=== PATIENT | male | born 1985 | race Caucasian/White ===

== ENCOUNTER 2017-08-23 17:11 | Emergency (ER) | payer OTHER ==
[~2017-08-23] VITALS: Ht 188 cm; Wt 75.7 kg
--- NOTE | 2017-08-23 18:41 | Diagnostic Imaging Report ---
INDICATION: Fell, landed on left arm, pain to the wrist area on the medial side FINDINGS: Three views of the left wrist demonstrate normal ossification. No fracture or dislocation is present. IMPRESSION: Normal left wrist. Dictated by: Dictated on workstation # [id number]
--- NOTE | 2017-08-23 18:42 | Diagnostic Imaging Report ---
INDICATION: Fell, landed on left arm, pain to the distal arm. FINDINGS: Two views of the left forearm demonstrate normal ossification. No fracture or dislocation is present. IMPRESSION: Normal left forearm. Dictated by: Dictated on workstation # [id number]
--- NOTE | 2017-08-23 19:42 | Diagnostic Imaging Report ---
INDICATION: Patient fell on left hand complaining of hand pain FINDINGS: 3 views of the left hand demonstrate normal ossification. No fracture or subluxation is present. There are no foreign bodies. IMPRESSION: Normal left hand. Dictated by: Dictated on workstation # [id number]
--- NOTE | 2017-08-23 19:46 | Diagnostic Imaging Report ---
INDICATION: Patient landed on left arm complaining of left shoulder pain. FINDINGS: 3 views of left shoulder demonstrates normal ossification. No fracture or dislocation is present. IMPRESSION: Normal left shoulder. Dictated by: Dictated on workstation # [id number]
--- NOTE | 2017-08-23 20:11 | ED Upper Extremity ---
General Chief Complaint: Upper Extremity Stated Complaint: L ARM INJ Nursing Triage Note: fell off of flatbed on hand. unable to move left thumb or forefinger Nursing Sepsis Screen: No Definite Risk History of Present Illness Date Seen by Provider: Aug 23, 2017 Time Seen by Provider: 19:00 Initial Comments 31-year-old male reports that he was standing on the top of a flatbed trailer, he was jumping off when his boot got caught on a rail and he landed on his left hand. He reports immediate onset of pain in his left hand. She is right -hand dominant. He denies any injuries to his head or chest. There was no loss of consciousness. Since then he has been having pain and numbness in his left hand. He reports some pain that begins in his left shoulder and radiates to his left hand. He's had no previous left upper extremity injuries. Pain/Injury Location: left shoulder, left arm, left wrist, left hand Method of Injury: fell Modifying Factors: Improves With Rest Allergies and Home Medications Allergies Coded Allergies: codeine (Unverified Allergy, Unknown, 08/23/17) Home Medications Tramadol HCl 50 Mg Tablet, 50 MG PO Q8H Prescribed by: SUAD WU on 08/23/172023 Patient Home Medication List Home Medication List Reviewed: Yes Constitutional: no symptoms reported, see HPI Musculoskeletal: see HPI, joint pain (left wrist and hand), muscle pain (left upper extremity), No neck pain All Other Systems Reviewed Negative Unless Noted: Yes Past Vsuqyal-Wqpwnp-Gujnut Hx Patient Social History Alcohol Use: Rarely Uses Recreational Drug Use: No Smoking Status: Current Everyday Smoker 2nd Hand Smoke Exposure: No Recent Foreign Travel: No Contact w/Someone Who Travel: No Recent Infectious Disease Expo: No Recent Hopitalizations: No Immunizations Up To Date Tetanus Booster (TDap): Less than 5yrs Seasonal Allergies Seasonal Allergies: No Surgeries History of Surgeries: Yes Surgeries: Abdominal Respiratory History of Respiratory Disorde: No Cardiovascular History of Cardiac Disorders: No Neurological History of Neurological Disord: No Genitourinary History of Genitourinary Disor: No Gastrointestinal History of Gastrointestinal Di: No Musculoskeletal History of Musculoskeletal Dis: No Endocrine History of Endocrine Disorders: No HEENT History of HEENT Disorders: No Cancer History of Cancer: No Psychosocial History of Psychiatric Problem: No Integumentary History of Skin or Integumenta: No Blood Transfusions History of Blood Disorders: No Adverse Reaction to a Blood Tr: No Reviewed Nursing Assessment Reviewed/Agree w Nursing PMH: Yes Physical Exam Vital Signs Vital Signs - First Documented 08/23/17 17:57 Temp 98.1 Pulse 91 Resp 18 B/P (MAP) 143/78 (99) Pulse Ox 99 Capillary Refill : Less Than 3 Seconds General Appearance: WD/WN, no apparent distress Neck: non-tender, full range of motion, supple, normal inspection, No tender lateral, No tender midline Cardiovascular: normal peripheral pulses, regular rate, rhythm, no edema, no murmur Respiratory: chest non-tender, lungs clear, normal breath sounds, no respiratory distress Wrist: No asymmetry, Yes bone tenderness (distal radius), No deformity, No ecchymosis, Yes limited ROM (secondary to pain), Yes pain (left), Yes soft tissue tenderness, No swelling Hand: normal inspection, Left, bone tenderness (through carpals and metacarpals ), ecchymosis, limited ROM, soft tissue tenderness, stiffness Neurologic/Psychiatric: no motor/sensory deficits, alert, normal mood/affect, oriented x 3 Skin: normal color, warm/dry Lymphatic: no adenopathy Progress/Results/Core Measures Results/Orders My Orders Orders - SUAD WU Shoulder, Left, 3 Views (08/23/17 19:09) Hand, Left, 3 Views (08/23/17 19:09) Tramadol Tablet (Ultram Tablet) (08/23/17 19:09) Vital Signs/I&O Vital Sign - Last 12Hours 08/23/17 08/23/17 17:57 20:30 Temp 98.1 98.1 Pulse 91 91 Resp 18 18 B/P (MAP) 143/78 (99) 143/78 (99) Pulse Ox 99 99 Blood Pressure Mean: 99 Progress Note : Time: 19:00 Progress Note Initial evaluation completed, recommended x-rays of the hand wrist and shoulder. Tramadol 50 mg by mouth for pain. 2014 patient reports pain has improved, x-ray results reviewed with the patient , recommended wrist splint and Horace wrap, these were applied. Discharge instructions and return precautions reviewed. All questions answered. Diagnostic Imaging Diagonstic Imaging: Xray Plain Films/CT/US/NM/MRI: hand Comments NAME: ADELE STODDARD REC#: [id number] PHYSICIAN: SUAD WU CC: SUAD WU; SAMINA BOATENG MD Page 1 of 1 RADIOLOGY REPORT VIA [facility], [facility]. [place], [place] CC: SUAD WU; SAMINA BOATENG MD Page 1 of 1 RADIOLOGY REPORT NAME: ADELE STODDARD MED REC#: [id number] PT STATUS: REG ER : 1985 PHYSICIAN: SUAD WU ADMIT DATE: 08/23/17/ER Signed Date of Exam: 08/23/17 HAND, LEFT, 3 VIEWS INDICATION: Patient fell on left hand complaining of hand pain FINDINGS: 3 views of the left hand demonstrate normal ossification. No fracture or subluxation is present. There are no foreign bodies. IMPRESSION: Normal left hand. Dictated by: Dictated on workstation # [id number] Dict: 08/23/171938 Trans: 08/23/171950 Interpreted by: SAMINA BOATENG MD Electronically signed by: SAMINA BOATENG MD 08/23/171950 Reviewed: Reviewed by Me Diagonstic Imaging: Xray Plain Films/CT/US/NM/MRI: forearm Comments NAME: ADELE STODDARD MED REC#: [id number] PT STATUS: REG ER : 1985 PHYSICIAN: GRACIELA SANCHEZ MD ADMIT DATE: 08/23/17/ER Signed Date of Exam: 08/23/17 FOREARM, LEFT, 2 VIEWS INDICATION: Fell, landed on left arm, pain to the distal arm. FINDINGS: Two views of the left forearm demonstrate normal ossification. No fracture or dislocation is present. IMPRESSION: Normal left forearm. Dictated by: Dictated on workstation # [id number] Dict: 08/23/17 183 Trans: 08/23/171902 Interpreted by: SAMINA BOATENG MD Electronically signed by: SAMINA BOATENG MD 08/23/171902 Reviewed: Reviewed by Me Diagonstic Imaging: Xray Plain Films/CT/US/NM/MRI: other (left shoulder) Comments NAME: ADELE STODDARD MED REC#: [id number] PHYSICIAN: SUAD WU CC: SUAD WU; SAMINA BOATENG MD Page 1 of 1 RADIOLOGY REPORT VIA [place], [place] CC: SUAD WU; SAMINA BOATENG MD Page 1 of 1 RADIOLOGY REPORT NAME: ADELE STODDARD MED REC#: [id number] PT STATUS: REG ER : 1985 PHYSICIAN: SUAD WU ADMIT DATE: 08/23/17/ER Signed Date of Exam: 08/23/17 SHOULDER, LEFT, 3 VIEWS INDICATION: Patient landed on left arm complaining of left shoulder pain. FINDINGS: 3 views of left shoulder demonstrates normal ossification. No fracture or dislocation is present. IMPRESSION: Normal left shoulder. Dictated by: Dictated on workstation # [id number] Dict: 08/23/171937 Trans: 08/23/171950 Interpreted by: SAMINA BOATENG MD Electronically signed by: SAMINA BOATENG MD 08/23/171950 Reviewed: Reviewed by Me Diagonstic Imaging: Xray Plain Films/CT/US/NM/MRI: other (left wrist) Comments NAME: ADELE STODDARD MED REC#: [id number] PHYSICIAN: GRACIELA SANCHEZ MD CC: SAMINA OBATENG MD; GRACIELA SANCHEZ Page 1 of 1 RADIOLOGY REPORT VIA [facility]. [place], [place] CC: SAMINA BOATENG MD; GRACIELA SANCHEZ Page 1 of 1 RADIOLOGY REPORT NAME: ADELE STODDARD MED REC#: [id number] PT STATUS: REG ER : 1985 PHYSICIAN: GRACIELA SANCHEZ MD ADMIT DATE: 08/23/17/ER Signed Date of Exam: 08/23/17 WRIST, LEFT, 3 VIEWS OR MORE INDICATION: Fell, landed on left arm, pain to the wrist area on the medial side FINDINGS: Three views of the left wrist demonstrate normal ossification. No fracture or dislocation is present. IMPRESSION: Normal left wrist. Dictated by: Dictated on workstation # [id number] Dict: 08/23/17 1836 Trans: 08/23/171902 Interpreted by: SAMINA BOATENG MD Electronically signed by: SAMINA BOATENG MD 08/23/171902 Reviewed: Reviewed by Me Departure Impression Impression: Primary Impression: Contusion of left hand Qualified Codes: S60.222A - Contusion of left hand, initial encounter Additional Impressions: Sprain of left wrist Qualified Codes: S63.502A - Unspecified sprain of left wrist, initial encounter Fall Qualified Codes: W19.XXXA - Unspecified fall, initial encounter Disposition: HOME, SELF-CARE Condition: Improved Departure-Patient Inst. Decision time for Depature: 20:00 Referrals: NO,LOCAL PHYSICIAN (PCP/Family) Primary Care Physician Patient Instructions: Contusion (DC), Wrist Sprain (DC) Add. Discharge Instructions: Use wrist splint as needed for pain and comfort. May alternate between Tylenol 650 mg and ibuprofen 600 mg every 4 hours for pain. Ice to left hand and wrist 20 minutes every 2 hours while awake. Follow-up with primary care provider if symptoms are not improving. Return to emergency department for new injuries or problems. All discharge instructions reviewed with patient and/or family. Voiced understanding. Scripts Tramadol HCl (Tramadol HCl) 50 Mg Tablet 50 MG PO Q8H, #15 TAB 0 Refills Prov: SUAD WU 08/23/17 Work/School Note: Work Release Form Date Seen in the Emergency Department: Aug 23, 2017 Return to Work: Aug 24, 2017 Restrictions: Need Release from Doctor Other Restrictions Listed Below: Light duty left upper extremity, until follow-up SUAD WU Aug 23, 2017 20:11
[2017-08-23] MEDS ORDERED: TRAM50TA2 PO (20:24)
[2017-08-23 20:30] VITALS: BP 143/78
== END 2017-08-23 20:30 | disposition home or self-care (01) ==
LOC: ER 17:14
DX: S63.502A Unspecified sprain of left wrist, initial encounter (principal); S60.222A Contusion of left hand, initial encounter; F17.200 Nicotine dependence, unspecified, uncomplicated; Z88.5 Allergy status to narcotic agent; V68.7XXA Person on outside of heavy transport vehicle injured in noncollision transport accident in traffic accident, initial encounter
CPT/HCPCS: 73030; 73090; 73110; 73130